=== PATIENT | female | born 1980 | race Caucasian/White ===

== ENCOUNTER 2017-08-23 17:15 | Emergency (ER) | payer OTHER ==
[~2017-08-23] VITALS: Ht 160 cm; Wt 89.4 kg
[~2017-08-23 17:15] MED LIST: MTR600X PO; OXYC5TAB PO; PRENTAB26 PO
[2017-08-23 17:22] VITALS: BP 127/81; TEMP 36.8; Ht 160 cm; Wt 89.4 kg
[2017-08-23] MEDS ORDERED: KETOROLAC TROMETHAMINE 60 MG/2 ML VIAL IM STA (17:29)
--- NOTE | 2017-08-23 17:59 | EMERGENCY ROOM VISIT NOTE ---
History First contact with patient: 17:25 Chief Complaint: HAND PAIN/INJURY Stated Complaint: SHUT L HAND IN CAR DOOR,SWELLING/PAIN History of Present Illness The patient is a 36 year old female who presents to the Emergency Room via private vehicle with complaints of "short left hand in car door, swelling/pain" . The patient states that yesterday she was at a home when she accidentally shot her left hand in a car door. She is right-hand dominant. She notes that since then she has had pain noted at the dorsal aspect of the hand and metacarpal region. She rates the pain as a 5/10 in the ice, ibuprofen and Tylenol she has been trying to provide minimal relief. Last dose of ibuprofen was 100 mg at 9:30 AM this morning. The pain is persistent. Review of Systems A complete 6-point Review of Systems was discussed with the patient, with pertinent positives and negatives listed in the History of Present Illness. All remaining Review of Systems questions can be considered negative unless otherwise specified. Past Medical/Surgical History Medical Problems: (1) Migraine (2) ovarian cyst Family History Cancer Diabetes mellitus Heart disease Social History Smoking Status: Former Smoker Alcohol Use: none Drug Use: none Marital Status: single Housing Status: lives with family Occupation Status: employed Current/Historical Medications Scheduled Cyanocobalamin (Vitamin B-12), 2,500 MCG PO DAILY Multiple Vitamins W/ Minerals (Womens One Daily), 1 TAB PO DAILY Scheduled PRN Hydrocodone/Acetaminophen 5MG/325MG (Lutz 5MG/325MG), 1 TABLET PO Q4H PRN for Pain Physical Exam Vital Signs Date Time Temp Pulse Resp B/P (MAP) Pulse Ox O2 Delivery O2 Flow Rate FiO2 08/23/17 18:56 75 18 100 Room Air 08/23/17 17:22 36.8 77 18 127/81 99 Room Air Physical Exam VITAL SIGNS - Vital signs and nursing notes were reviewed. Stabe. GENERAL -36-year-old female appearing her stated age who is in no acute distress. Communicates well with provider and answers questions appropriately. SKIN -there is edema overlying the dorsal region of the L hand, and bruising noted overlying the patient's left dorsum of the hand mid metacarpal region. EXTREMITIES -decreased range of motion of the left hand noted secondary to pain. She is neurovascularly intact in this region. No wrist tenderness or finger tenderness. Pinpoint tenderness overlying the mid dorsal aspect of the patient's left hand mid metacarpal region. +5/5 strength noted in UE/LE bilaterally. Medical Decision & Procedures ER Provider Diagnostic Interpretation: LEFT HAND 3 VIEWS HISTORY: L hand pain, shut in car door COMPARISON: None. FINDINGS: There is no fracture or dislocation. Soft tissues are unremarkable. No radiopaque foreign bodies. IMPRESSION: No fractures. Electronically signed by: Nba Lazo M.D. 08/23/2017 6:17 PM Dictated Date/Time: 08/23/2017 6:14 PM Medications Administered Medications (Trade) Dose Ordered Sig/Serenity Route Start Time Stop Time Status Last Admin Dose Admin Ketorolac Tromethamine (Toradol Inj) 60 mg NOW STAT IM 08/23/17 17:29 08/23/17 17:30 DC 08/23/17 17:44 60 MG Medical Decision Patient was seen and evaluated as above in room D5. Review was performed of nursing notes and vital signs. After obtaining a thorough history and physical examination the above work up was performed. She presents to us today with left hand pain status post cutting this in a car door. X-ray was obtained. Results as above. She requested something for pain, noted that she was not and was given Toradol IM. She was reevaluated and had some relief. The x-ray does not reveal any fracture or dislocation. I suspect soft tissue contusion but did educate the patient upon risk of occult fracture. Through shared decision making with the patient, decision was made to place the patient in an Tu wrap for compression, and she is to ice and elevate this at home. She is to follow with her family doctor/orthopedics if the pain persists for potential repeat x-ray. She was neurovascularly intact distally. The patient was educated upon management, had questions answered prior to discharge, and was discharged home in good condition. Because of her pain she will be given a short course of, with risks reviewed with the patient. No red flags in the [place] drug monitoring system. In the evaluation and treatment of this patient, the following differential diagnoses were considered: Wrist Sprain, Wrist Fracture, Wrist Dislocation, Scapholunate Dissociation, Carpal Fracture, Metacarpal Fracture, Radial Styloid Process Fracture, finger fracture, ulnar Styloid Process Fracture, or Carpal Tunnel Syndrome. Impression Primary Impression: Hand pain, left Departure Information Dispostion Home / Self-Care Condition GOOD Prescriptions Hydrocodone/Acetaminophen 5MG/325MG (Lutz 5MG/325MG) Tab 1 TABLET PO Q4H Y for Pain, #10 TAB For Initial Treatment Prov: Damir Chavez PA-C 08/23/17 Referrals Lewis Luong M.D. (PCP) Xavier Cuellar M.D. Forms HOME CARE DOCUMENTATION FORM, IMPORTANT VISIT INFORMATION Patient Instructions My [facility] Additional Instructions You have been treated in the Emergency Department for hand pain. You have been prescribed NORCO to be used for pain control. This is a narcotic medication. You cannot drive or consume alcohol while on this medicine. This medicine should only be used for pain that cannot be controlled with over-the- counter pain medicines. Please do not take this with Tylenol. For pain control, you can use the following [id number] medicines (if >12 yo): - Regular strength (325mg/tab) Tylenol (acetaminophen) 2 tabs every 4-6 hours as needed. Do not exceed 12 tablets in a 24 hour period. Avoid taking more than 3 grams (3000 mg) of Tylenol per day. This includes any other sources of acetaminophen you may take on a regular basis. - Regular strength (200 mg/tab) Advil (ibuprofen) 1-2 tabs every 4-6 hours as needed. Do not exceed a dose of 3200 mg per day. If this is a recent injury (<24 hrs), ice can be applied to the area of pain for the first 3 days to help decrease pain and inflammation. You have been provided the number for an Orthopaedic Surgeon. You should call this number as soon as possible to establish a follow-up visit from today's Emergency Department visit. Keep the brace/splint in place until evaluated by Orthopedics. You may apply the Tu wrap daily. You may take it off to shower. This is for helping with the swelling. Return to the Emergency Department if your current symptoms worsen despite treatment course outlined above, or if you develop any of the following symptoms : intractable pain despite aforementioned treatment course or new onset of numbness or tingling of the fingers.
[2017-08-23] MEDS ORDERED: CYAN1SUB12 PO (18:00)
[2017-08-23] MEDS ORDERED: MULT-240 PO (18:00)
--- NOTE | 2017-08-23 18:18 | DIAGNOSTIC IMAGING REPORT ---
LEFT HAND 3 VIEWS HISTORY: L hand pain, shut in car door COMPARISON: None. FINDINGS: There is no fracture or dislocation. Soft tissues are unremarkable. No radiopaque foreign bodies. IMPRESSION: No fractures. Electronically signed by: Nba Lazo M.D. 08/23/2017 6:17 PM Dictated Date/Time: 08/23/2017 6:14 PM
[2017-08-23] MEDS ORDERED: HYDR-5688 PO (18:44)
[2017-08-23 18:56] VITALS: PULSE 75; O2SAT 100
== END 2017-08-23 18:56 | disposition home or self-care (01) ==
LOC: C.EDB 17:16 → C.EDD 18:56
DX: M79.642 Pain in left hand (principal); W23.1XXA Caught, crushed, jammed, or pinched between stationary objects, initial encounter; Z87.891 Personal history of nicotine dependence; Z80.9 Family history of malignant neoplasm, unspecified; Z83.3 Family history of diabetes mellitus